=== PATIENT | female | born 1975 | race Caucasian/White ===

== ENCOUNTER → 2018-06-24 | Outpatient (CLI) | payer BC, OTHER ==
--- NOTE | 2018-06-24 10:09 | RAD ---
Thyroid ultrasound, 06/24/2018: HISTORY: Hypothyroidism The right lobe of the gland measures 4.4 x 1.1 x 0.9 cm while the left lobe of the gland measures 4.0 x 1.2 x 1.0 cm. The gland demonstrates a somewhat hyperechoic, heterogeneous echo pattern. This may represent the sequelae of prior thyroiditis. No discrete thyroid mass is seen. IMPRESSION: Small, heterogeneous thyroid gland without evidence of a discrete mass. Electronically signed by: Aristeo Palomino MD (06/24/2018 10:05 AM) [facility]
== END | disposition home or self-care (01) ==
LOC: US 08:34
PROVIDERS: ATTEND Physician Assistant Medical
DX: E03.9 Hypothyroidism, unspecified (principal); I10 Essential (primary) hypertension; Z84.1 Family history of disorders of kidney and ureter
CPT/HCPCS: 76536

== ENCOUNTER → 2019-03-09 | Outpatient (CLI) | payer BC ==
--- NOTE | 2019-03-09 11:16 | RAD ---
AP pelvis, 2 views left hip 03/09/2019 9:46 AM Indication: Fall, hematoma on buttocks, left side. Left hip pain Comparison: None Findings: There is no acute fracture or dislocation. Articular surfaces are uninterupted and smooth. Soft tissues are unremarkable. Impression: No evidence of acute osseous abnormality. Electronically signed by: Gregory Paul MD (03/09/2019 11:13 AM) [id number]
== END | disposition home or self-care (01) ==
LOC: PMG 09:00
PROVIDERS: ATTEND Physician Assistant Medical
DX: S30.0XXA Contusion of lower back and pelvis, initial encounter (principal); M25.552 Pain in left hip; W19.XXXA Unspecified fall, initial encounter; Y93.89 Activity, other specified; Y92.89 Other specified places as the place of occurrence of the external cause; Y99.8 Other external cause status
CPT/HCPCS: 73502

== ENCOUNTER → 2019-03-10 | Outpatient (CLI) | payer BC ==
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
== END | disposition home or self-care (01) ==
LOC: US 07:46
PROVIDERS: ATTEND Physician Assistant Medical
DX: S39.82XA Other specified injuries of lower back, initial encounter (principal); W19.XXXA Unspecified fall, initial encounter; Y93.89 Activity, other specified; Y92.89 Other specified places as the place of occurrence of the external cause; Y99.8 Other external cause status
CPT/HCPCS: 76881

== ENCOUNTER → 2019-09-01 | Outpatient (CLI) | payer BC ==
--- NOTE | 2019-09-01 15:44 | RAD ---
ANKLE RIGHT 3V 09/01/2019 12:00 AM INDICATION: Right ankle pain status post slip 4 days ago COMPARISON: None available. TECHNIQUE: 3 views the right ankle are provided. FINDINGS: Suspected nondisplaced fracture involving the tip of the lateral malleolus. Bone mineralization is within normal limits. Joint spaces are maintained. There is associated soft tissue swelling involving the ankle. There is no soft tissue gas or osseous erosion. IMPRESSION: Lateral soft tissue swelling involving ankle with possible nondisplaced fracture involving the tip of the lateral malleolus. No definite intra-articular extension. Tibial plafond and talar dome are intact. Ankle mortise is congruent. Electronically signed by: Nadira Hutchins MD (09/01/2019 3:42 PM) [facility]
== END | disposition home or self-care (01) ==
LOC: PMG 15:08
PROVIDERS: ATTEND Physician Assistant
DX: M25.571 Pain in right ankle and joints of right foot (principal); M79.89 Other specified soft tissue disorders; W01.0XXA Fall on same level from slipping, tripping and stumbling without subsequent striking against object, initial encounter; Y93.89 Activity, other specified; Y92.89 Other specified places as the place of occurrence of the external cause; Y99.8 Other external cause status
CPT/HCPCS: 73610

== ENCOUNTER → 2020-11-01 | Outpatient (CLI) | payer BC ==
--- NOTE | 2020-11-01 16:50 | RAD ---
BILATERAL SCREENING MAMMOGRAM, 3-D History: Routine screening. Comparison: 07/05/2015. Technique: MLO and CC digital tomosynthesis (3D) images obtained. Radiologist reviewed these images on dedicated workstation. Findings: Breast Tissue Density B : There are scattered areas of fibroglandular density. There are no dominant masses, suspicious microcalcifications, or architectural distortion. IMPRESSION: No mammographic evidence of malignancy. Recommend routine screening. BI-RADS category 1: Negative. The images were reviewed with computer-aided detection. Patient information is entered into reminder system with a target due date for the next screening mammogram. Mammography is the most sensitive method for finding small breast cancers, but it does not detect them all and is not a substitute for careful clinical examination. A negative mammogram does not negate a clinically suspicious finding and should not result in delay in biopsying a clinically suspicious abnormality. "Our facility is accredited by the [employer] Mammography Program." Electronically signed by: Royal Otoole MD (11/01/2020 4:47 PM) [id number]
== END ==
LOC: MAMMO 10:43
PROVIDERS: ATTEND Physician Assistant Medical
DX: Z12.31 Encounter for screening mammogram for malignant neoplasm of breast (principal)
CPT/HCPCS: 77063; 77067

== ENCOUNTER 2021-05-31 14:49 | Emergency (ER) | payer BC ==
[~2021-05-31] VITALS: Ht 162.6 cm; Wt 114.1 kg
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
--- NOTE | 2021-05-31 15:36 | RAD ---
EXAM: CT Head without IV contrast CLINICAL HISTORY: Reason: fall / Spl. Instructions: / History: COMPARISON: None. TECHNIQUE: Routine CT of the head without contrast. PQRS compliance statement - One or more of the following individualized dose reduction techniques wer e utilized for this study: 1. Automated exposure control 2. Adjustment of the mA and/or kV according to patient size 3. Use of iterative reconstruction technique FINDINGS: There is no evidence of hemorrhage, mass or extra-axial fluid collection. Scalp hematoma right fronto parietal region. Maravilla-white differentiation is maintained with no evidence of edema. There is no mass effect or shift of the intracranial structures. The ventricles, basilar cisterns and cortical sulci are normal in size and configuration for the mikaela ents stated age. The cerebellum and brainstem are unremarkable. The calvarium demonstrates no evidence of fracture or focal lesion. There is normal aeration of the visualized paranasal sinuses and mastoid air cells. The visualized portions of the orbits are normal. IMPRESSION: No evidence for acute intracranial process. Electronically signed by: Louis Denney MD (05/31/2021 3:33 PM) [facility]
[2021-05-31 16:22] VITALS: BP 166/94
== END 2021-05-31 16:23 | disposition home or self-care (01) ==
LOC: ER 14:49
DX: S00.81XA Abrasion of other part of head, initial encounter (principal); W22.8XXA Striking against or struck by other objects, initial encounter; Y93.89 Activity, other specified; Y92.89 Other specified places as the place of occurrence of the external cause; Y99.8 Other external cause status
CPT/HCPCS: 70450; 99284-25